=== PATIENT | male | born 1980 ===

== ENCOUNTER 2024-04-03 09:15 | Emergency (ER) | payer SELFPAY ==
[2024-04-03] VITALS (21 sets, daily range): BP systolic 49–136; BP diastolic 26–87; PULSE 67–89; RESP 12–22; TEMP 36.7–37.9; O2SAT 94–99
--- NOTE | ~2024-04-03 | CT_ITS ---
EXAMINATION: CT HEAD WITHOUT CONTRAST EXAMINATION: NONCONTRAST HEAD CT INDICATION INFORMATION: Altered mental status COMPARISON: None. TECHNIQUE: Noncontrast CT examinations of the head was performed. Coronal and sagittal images were created for each examination at the technologist workstation. This CT examination was performed using dose optimization techniques as appropriate, variously including the following: *Automated exposure control *Adjustment of mA and/or kV according to patient size (this includes techniques or standardized protocols for targeted exams where dose is matched to indication/reason for exam; i.e. extremities or head) *Use of iterative reconstruction technique DLP: 690 mGy-cm FINDINGS: Head: There is no evidence of acute intracranial hemorrhage or territorial infarction. No abnormal mass effect or midline shift is seen. Levin to white matter differentiation is well preserved. No extra-axial fluid collections are identified. No hydrocephalus. No significant volume loss. There is no abnormal attenuation within the brain parenchyma. No acute osseous or soft tissue abnormality. Mucosal thickening in the left frontal sinus and ethmoid air cells as well as the right sphenoid sinuses. Opacification of the left maxillary sinus. Mastoid air cells are clear. CT/CT head/brain wo IV con IMPRESSION: 1. No acute intracranial abnormality. 2. Sinus disease as described above. Electronically signed by: Chris Islas MD 04/03/2024 07:39 PM EDT
--- NOTE | ~2024-04-03 | XR_ITS ---
EXAMINATION: XR CHEST CLINICAL INFORMATION: Fever after overdose. Cough. COMPARISON: None available. TECHNIQUE: Frontal view of the chest was obtained. FINDINGS: Normal appearance of the cardiomediastinal structures. No effusions or pneumothoraces. Normal pattern of pulmonary vasculature. No focal pulmonary consolidation. No skeletal abnormalities noted. XR/XR chest 1V IMPRESSION: No acute cardiopulmonary abnormalities. Lungs clear. Electronically signed by: Rl Quiros MD 04/04/2024 03:20 AM EDT
--- NOTE | ~2024-04-03 | XR_ITS ---
EXAMINATION: XR CHEST CLINICAL INFORMATION: Fever, cough, aspiration. COMPARISON: Chest radiograph 04/04/2024. TECHNIQUE: 2 views of the chest were obtained. FINDINGS: Normal appearance of the cardiomediastinal silhouette. Minimally increased interstitial markings compared to prior without focal consolidation, pleural effusion or pneumothorax. No acute osseous findings. XR/XR chest 2V IMPRESSION: Minimally increased interstitial markings which could be seen with an infectious/inflammatory process of the small airways. No focal consolidation. Electronically signed by: Jeanine Orozco MD 04/04/2024 11:25 AM EDT
[2024-04-03] MEDS: OLANZapine 10 MG VIAL IM ×2 (09:46→10:45)
[2024-04-03] MEDS: Midazolam HCl/PF 2 MG/2 ML VIAL 5 MG IM ×2 (09:46→10:45)
[2024-04-03 09:47] LABS: Amphetamine Screen Urine Not Detected (Not Detect); Barbiturates, Urine Not Detected (Not Detect); Benzodiazepines Screen Urine Not Detected (Not Detect); Buprenorphine Scr Not Detected (Not Detect); Cannabinoid Screen Urine Not Detected (Not Detect); Cocaine Screen Urine POSITIVE (Not Detect); Fentanyl, urine POSITIVE (Not Detect); Methadone Screen, Urine Not Detected (Not Detect); Opiate Screen Urine POSITIVE (Not Detect); Oxycodone Screen Urine Not Detected (Not Detect); Phencyclidine Screen Urine Not Detected (Not Detect)
--- NOTE | 2024-04-03 10:20 | PC.NURSE ---
late charting due to patient care, patient arrives from street, witnessed overdose, per EMS patient recieved ?4mg of narcan from bystandards, was found to be agonally breathing by FD. FD gave an additional 2mg, of narcan, patient arrives awake but agitated on stretcher, flailing around,unable to be redirected,unable to tell us their name or birthday, tells this RN that they did a bag but not able to say of what, admits to daily drug use however. patient unable to provide any information, patient moved infront of nurses station for safety purposes, requiring frequent redirection, patient Bp unable to be obtained due to flailing in the bed and inability to sit still. MD at bedside to evaluate patient, patient medicated with IM medications per order. at this time patient remains intermittently rolling and flailing in the bed. ID confirmed by friends. patient on school bus monitor, saturating well and protecting airway at this time. BP still unable to be obtained, when cuff inflates patient becomes agitated. despite initial IM medications, patient remains flailing in bed, unable to be redirected. MD at bedside patient to be medicated again per order until no longer a risk to themself .
[2024-04-03 10:39] LABS: Appearance Urine Clear; Color Urine Yellow; Glucose Urine UA Negative (Negative); Leukocyte Esterase Urine Negative (Negative); Nitrite Urine Negative (Negative); UMIC TRIGGER UA YES; Urine Blood Negative (Negative); Urine Ketones Negative (Negative); Urine Protein 300 (3+) mg/dL (Neg-Trace)
[2024-04-03 10:43] LABS: Bacteria Urine None Seen (None Seen); Hyaline Casts Urine 0-2 /LPF (0-2); RBC Urine 0-2 /HPF (0-2); Squamous Epithelial Cell Urine 0-2 /HPF (0-2); WBC Urine 0-5 /HPF (0-5)
--- NOTE | 2024-04-03 10:45 | PC.NURSE ---
patient continues to try to stand up out of bed and push staff, patient difficult to redirect, MD made aware.
--- NOTE | 2024-04-03 10:54 | PC.NURSE ---
patient continues to roll around on stretcher, medicated again per MD. patient remains on cardiac cath technician however will not allow BP to be obtained. unable to obtain blood work at this time due to patient agitation. will try again when patient is better sedated
--- NOTE | 2024-04-03 11:09 | ED_ITS ---
HPI - General Adult General Chief complaint: Overdose Stated complaint: HEROIN OD,VOMITING,UNCOOPERATIVE PER EMS Time Seen by Provider: 04/03/24 09:36 History of Present Illness ED Provider: Mine KLINE narrative: The patient is a 43-year-old person who was apparently found on the street with a needle in their arm, quite unresponsive. Apparently the patient received a total of 6 mg of naloxone. The patient arrived very restless and confused. No other history available. Apparently some friends of the patient called the emergency room and said that the patient identifies as female and prefers to be called Frank. Related Data Allergies Allergy/AdvReac Type Severity Reaction Status Date / Time Unable to Assess Allergy Verified 04/03/24 09:19 Review of Systems 2 Review of Systems: Yes all other systems are reviewed and are negative and Unobtainable due to mental status PMFSH Social History Social History Unable to assess alcohol history related to: Unknown Use of substances other than those prescribed or required for medical reasons: Yes Substance Use Type: Crack/Cocaine, Heroin, IV Drugs and Opiates Last Used Substance: Just Prior to Admission Advance Directives: No Advance Directives Information Provided: No Physical Exam ED Vital Signs: Vital Signs - 24 hr 04/03/24 09:19 04/03/24 09:46 04/03/24 10:01 Temperature 98.1 F Pulse Rate 88 85 86 Respiratory Rate 19 20 19 Blood Pressure Pulse Oximetry 98 97 99 Oxygen Delivery Method Room Air Room Air 04/03/24 10:16 04/03/24 10:31 04/03/24 10:45 Temperature Pulse Rate 88 87 86 Respiratory Rate 20 22 H 20 Blood Pressure Pulse Oximetry 98 99 99 Oxygen Delivery Method Room Air Room Air Room Air 04/03/24 11:00 04/03/24 11:15 04/03/24 11:30 Temperature Pulse Rate 85 84 85 Respiratory Rate 18 20 16 Blood Pressure Pulse Oximetry 98 98 97 Oxygen Delivery Method Room Air Room Air Room Air 04/03/24 11:45 04/03/24 12:00 04/03/24 12:10 Temperature Pulse Rate 84 89 85 Respiratory Rate 16 15 16 Blood Pressure 49/26 L 90/40 L Pulse Oximetry 97 94 97 Oxygen Delivery Method Room Air Room Air Room Air 04/03/24 12:19 04/03/24 15:42 04/03/24 17:15 Temperature Pulse Rate 80 74 75 Respiratory Rate 14 20 19 Blood Pressure 107/60 119/71 120/73 Pulse Oximetry 96 95 95 Oxygen Delivery Method Room Air Room Air Room Air BMI result Body Mass Index 0.0 Const Other: The patient has a healthy and muscular physical appearance but they do not respond to verbal stimuli. They were intermittently restless with psychomotor agitation. They were not verbal. HENMT Other: Face is symmetrical. Airway is clear. Mucous membranes moist. Eyes Other: Pupils are small and equal, conjunctivae are clear Neck Other: The patient was moving the neck easily and with a full range of motion. No swelling. Resp Other: The patient was mildly tachypneic. Breath sounds were clear. Cardio Rate: regular rate Rhythm: regular rhythm Heart sounds: S1 normal heart sound present and S2 normal heart sound present GI Other: Abdomen was soft and seems nontender. Skin Other: The skin was mildly diaphoretic. Otherwise unremarkable. Neuro Other: The patient had a diminished level of caught this and restless psychomotor agitation. The patient was nonverbal. Eyes seemed symmetrical. Face was symmetrical. Tone in the extremities seemed symmetrical. Extrem Other: The patient has muscular extremities without soft tissue swelling or other abnormalities apparent. Medications Administered Discontinued Medications Generic Name Dose Route Start Last Admin Trade Name Freq PRN Reason Stop Dose Admin Droperidol 5 mg 04/03/24 11:22 04/03/24 11:25 Droperidol 5 Mg/2 Ml Vial IM 04/03/24 11:23 5 mg ONCE ONE Administration Sodium Chloride 1,000 mls @ 999 mls/hr 04/03/24 12:45 04/03/24 16:22 Ns IV 04/03/24 13:45 Infused .Q1H1M CHANO Infusion Lorazepam 2 mg 04/03/24 11:09 04/03/24 11:15 Lorazepam 2 Mg/Ml Vial IM 04/03/24 11:10 2 mg STAT STA Administration Lorazepam 2 mg 04/03/24 12:15 04/03/24 12:21 Lorazepam 2 Mg/Ml Vial IVPUSH 04/03/24 12:16 2 mg ONCE ONE Administration Midazolam HCl 5 mg 04/03/24 09:37 04/03/24 09:46 Midazolam Hcl/Pf 2 Mg/2 Ml Vial IM 04/03/24 09:38 5 mg ONCE ONE Administration Midazolam HCl 5 mg 04/03/24 10:29 04/03/24 10:45 Midazolam Hcl/Pf 2 Mg/2 Ml Vial IM 04/03/24 10:30 5 mg ONCE ONE Administration Midazolam HCl 10 mg 04/03/24 11:28 04/03/24 11:35 Midazolam Hcl/Pf 2 Mg/2 Ml Vial IM 04/03/24 11:29 10 mg ONCE ONE Administration Olanzapine 10 mg 04/03/24 09:37 04/03/24 09:46 Olanzapine 10 Mg Vial IM 04/03/24 09:38 10 mg ONCE ONE Administration Olanzapine 10 mg 04/03/24 10:29 04/03/24 10:45 Olanzapine 10 Mg Vial IM 04/03/24 10:30 10 mg ONCE ONE Administration Medical Decision Making Medical Decision Making [facility] Narrative: The patient is a 43-year-old who was brought to the hospital after apparently being found unresponsive with a needle in the arm. The patient was unresponsive and was given the naloxone. The patient became agitated but not coherent after receiving the naloxone. In the emergency room the patient was persistently agitated and incoherent and therefore required chemical sedation. The patient was given multiple rounds of chemical sedatives including olanzapine, midazolam, droperidol, and lorazepam. Ultimately the patient became calmer and did not require physical restraints. We were able to do labs that show mild elevation of CPK but no other significant derangements. Urine tox screen was positive for opioids, fentanyl, and cocaine. ETOH is negative, salicylates negative, acetaminophen negative. Given the degree of agitation and incoherence and sedation I have also obtained a head CT. The results of the head CT are not yet available. Patient will require ongoing monitoring until he has recovered from his sedation. My expectation is that he will gradually recover from the sedation and ultimately be discharged. I will be signing the patient out to the oncoming physician at change of shift Lab Data 04/03/24 14:17 04/03/24 14:17 Labs: Lab Results 04/03/24 04/03/24 04/03/24 Range/Units 09:26 14:17 14:23 WBC 6.3 (4.8-10.8) X10*3/uL RBC 4.08 L (4.60-5.80) X10*6/uL Hgb 11.8 L (14.0-18.0) g/dl Hct 35.6 L (42.0-52.0) % MCV 87.3 (80.0-98.0) fL MCH 28.9 (27.0-33.0) pg MCHC 33.1 (31.0-36.0) g/dl RDW 11.6 (11.0-16.0) % Plt Count 279 (160-400) X10*3/uL MPV 9.4 (9.4-12.4) fL Immature Gran % (Auto) 0.5 H (0.0-0.4) % Neut % (Auto) 81.3 H (45-73) % Lymph % (Auto) 13.8 L (20-40) % [place] % (Auto) 4.1 (2-11) % Eos % (Auto) 0.0 (0-4) % Baso % (Auto) 0.3 (0-2) % Lymph # (Auto) 0.9 L (1.2-4.9) X10*3/uL [place] # (Auto) 0.3 (0.1-1.2) X10*3/uL Eos # (Auto) 0.0 (0.0-0.4) X10*3/uL Baso # (Auto) 0.0 (0.0-0.2) X10*3/uL Abs Immat Gran (auto) 0.03 (0.00-0.03) X10*3/uL Absolute Neuts (auto) 5.1 (2.0-8.3) x10*3/uL Absolute Nucleated RBC 0.000 (0.0-0.012) X10*3/uL Nucleated RBC % (auto) 0.0 (0.0-0.2) /100WBC VBG pH 7.49 H (7.32-7.43) VBG pCO2 29 mmHg VBG pO2 167 mmHg VBG HCO3 23 (22-26) mmol/L VBG O2 Saturation 100.0 % VBG Base Excess 0.9 mmol/L Sodium 139 (135-145) mmol/L Potassium 4.1 (3.3-5.1) mmol/L Chloride 110 H (96-108) mmol/L Carbon Dioxide 23 (22-29) mmol/L Anion Gap 10 L (12-20) BUN 17 H (9-16) mg/dL Creatinine 1.15 (0.5-1.4) mg/dL Estim Creat Clear Calc TNP Estimated GFR > 60 Random Glucose 126 H (60-115) mg/dL Calcium 9.1 (8.4-10.2) mg/dL Total Bilirubin 0.5 (0.0-1.0) mg/dL Direct Bilirubin 0.2 (0.0-0.5) mg/dL AST 38 H (5-37) U/L ALT 17 (0-40) U/L Alkaline Phosphatase 68 (39-117) U/L Total Creatine Kinase 1038 H (38-174) U/L Total Protein 8.2 H (6.5-8.0) g/dL Albumin 3.4 L (3.5-5.0) g/dL Urine Color Yellow Urine Appearance Clear Urine pH 6.0 (5.0-9.0) Ur Specific [place] 1.020 (1.005-1.025) Urine Protein 300 (3+) H (Neg-Trace) mg/dL Urine Glucose (UA) Negative (Negative) mg/dL Urine Ketones Negative (Negative) mg/dL Urine Blood Negative (Negative) Urine Nitrite Negative (Negative) Ur Leukocyte Esterase Negative (Negative) Urine RBC 0-2 (0-2) /HPF Urine WBC 0-5 (0-5) /HPF Ur Squamous Epith Cells 0-2 (0-2) /HPF Urine Bacteria None Seen (None Seen) Hyaline Casts 0-2 (0-2) /LPF Salicylates (15-30) mg/dL Urine Opiates Screen POSITIVE H (Not Detect) Ur Buprenorphine Scrn Not Detected (Not Detect) ng/mL Ur Oxycodone Screen Not Detected (Not Detect) ng/mL Urine Methadone Screen Not Detected (Not Detect) ng/mL Urine Fentanyl Screen POSITIVE H (Not Detect) Acetaminophen (<30) mcg/mL Ur Barbiturates Screen Not Detected (Not Detect) Ur Phencyclidine Scrn Not Detected (Not Detect) Ur Amphetamines Screen Not Detected (Not Detect) U Benzodiazepines Scrn Not Detected (Not Detect) Urine Cocaine Screen POSITIVE H (Not Detect) U Marijuana (THC) Screen Not Detected (Not Detect) Ethyl Alcohol < 10 mg/dL 04/03/24 Range/Units 16:54 WBC (4.8-10.8) X10*3/uL RBC (4.60-5.80) X10*6/uL Hgb (14.0-18.0) g/dl Hct (42.0-52.0) % MCV (80.0-98.0) fL MCH (27.0-33.0) pg MCHC (31.0-36.0) g/dl RDW (11.0-16.0) % Plt Count (160-400) X10*3/uL MPV (9.4-12.4) fL Immature Gran % (Auto) (0.0-0.4) % Neut % (Auto) (45-73) % Lymph % (Auto) (20-40) % [place] % (Auto) (2-11) % Eos % (Auto) (0-4) % Baso % (Auto) (0-2) % Lymph # (Auto) (1.2-4.9) X10*3/uL [place] # (Auto) (0.1-1.2) X10*3/uL Eos # (Auto) (0.0-0.4) X10*3/uL Baso # (Auto) (0.0-0.2) X10*3/uL Abs Immat Gran (auto) (0.00-0.03) X10*3/uL Absolute Neuts (auto) (2.0-8.3) x10*3/uL Absolute Nucleated RBC (0.0-0.012) X10*3/uL Nucleated RBC % (auto) (0.0-0.2) /100WBC VBG pH (7.32-7.43) VBG pCO2 mmHg VBG pO2 mmHg VBG HCO3 (22-26) mmol/L VBG O2 Saturation % VBG Base Excess mmol/L Sodium (135-145) mmol/L Potassium (3.3-5.1) mmol/L Chloride (96-108) mmol/L Carbon Dioxide (22-29) mmol/L Anion Gap (12-20) BUN (9-16) mg/dL Creatinine (0.5-1.4) mg/dL Estim Creat Clear Calc Estimated GFR Random Glucose (60-115) mg/dL Calcium (8.4-10.2) mg/dL Total Bilirubin (0.0-1.0) mg/dL Direct Bilirubin (0.0-0.5) mg/dL AST (5-37) U/L ALT (0-40) U/L Alkaline Phosphatase (39-117) U/L Total Creatine Kinase 1225 H (38-174) U/L Total Protein (6.5-8.0) g/dL Albumin (3.5-5.0) g/dL Urine Color Urine Appearance Urine pH (5.0-9.0) Ur Specific [place] (1.005-1.025) Urine Protein (Neg-Trace) mg/dL Urine Glucose (UA) (Negative) mg/dL Urine Ketones (Negative) mg/dL Urine Blood (Negative) Urine Nitrite (Negative) Ur Leukocyte Esterase (Negative) Urine RBC (0-2) /HPF Urine WBC (0-5) /HPF Ur Squamous Epith Cells (0-2) /HPF Urine Bacteria (None Seen) Hyaline Casts (0-2) /LPF Salicylates < 5.0 L (15-30) mg/dL Urine Opiates Screen (Not Detect) Ur Buprenorphine Scrn (Not Detect) ng/mL Ur Oxycodone Screen (Not Detect) ng/mL Urine Methadone Screen (Not Detect) ng/mL Urine Fentanyl Screen (Not Detect) Acetaminophen < 3 (<30) mcg/mL Ur Barbiturates Screen (Not Detect) Ur Phencyclidine Scrn (Not Detect) Ur Amphetamines Screen (Not Detect) U Benzodiazepines Scrn (Not Detect) Urine Cocaine Screen (Not Detect) U Marijuana (THC) Screen (Not Detect) Ethyl Alcohol mg/dL Discharge Plan Discharge Clinical Impression: Altered mental status, Substance abuse Patient Disposition: Still a Patient Print Language: Unknown
--- NOTE | 2024-04-03 11:10 | PC.NURSE ---
patient unable to be redirected, will lay still for brief moments but then tries to jump over bed rails, multiple staff members present to attempt to redirect patient, patient to be medicated per MD.
[2024-04-03] MEDS: LORazepam 2 MG/ML VIAL IM (11:15)
[2024-04-03] MEDS: droPERidol 5 MG/2 ML VIAL IM (11:25)
--- NOTE | 2024-04-03 11:25 | PC.NURSE ---
after medication administration patient became more agitated, attempting to get out of bed, pulling at equipment, MD order to medicate patient again
--- NOTE | 2024-04-03 11:25 | PC.NURSE ---
patient attempting to get out of bed and swinging at staff. security called to bedside, patient to be medicated again and moved to room 21
[2024-04-03] MEDS: Midazolam HCl/PF 2 MG/2 ML VIAL 10 MG IM (11:35)
--- NOTE | 2024-04-03 12:00 | PC.NURSE ---
into room to assess patient, patient noted to be snoring on stretcher, not thrashing at this time, BP taken and noted to be 49/26, MD made aware, PIV then attempted to be placed on pt by this RN, upon sticking patient, patient started becoming combative again, MD aware. this RN able to gain IV Access, IV fluids started per Verbal order, unable to obtain blood work at this time due to increasing agitation, OK to hold on labs per MD. patient to be medicated again
[2024-04-03] MEDS: LORazepam 2 MG/ML VIAL IVPUSH (12:16)
[2024-04-03] MEDS: 0.9 % Sodium Chloride 1,000 ML 999 ML IV (12:35)
--- NOTE | 2024-04-03 12:55 | MHC.EDTECH ---
Per provider, hold off on attempt to redraw labs.
--- NOTE | 2024-04-03 13:10 | PC.NURSE ---
patient resting comfortably on stretcher at this time, patient continues to protect airway, maintaining O2, vital signs stable at this time. 1:1 sitter remains at bedside
[2024-04-03 14:25] LABS: MANUAL DIFF FLAG NO
[2024-04-03 14:28] LABS: Basophils Percent Auto 0.3 % (0-2); Hematocrit 35.6 % (42.0-52.0); Hemoglobin 11.8 g/dl (14.0-18.0); Imm Gran Abs Auto 0.03 X10*3/uL (0.00-0.03); Imm Gran Pct Auto 0.5 % (0.0-0.4); Lymphocytes Absolute Auto 0.9 X10*3/uL (1.2-4.9); Lymphocytes Percent Auto 13.8 % (20-40); Mean Corpuscular HGB Conc 33.1 g/dl (31.0-36.0); Mean Corpuscular Hemoglobin 28.9 pg (27.0-33.0); Mean Corpuscular Volume 87.3 fL (80.0-98.0); Mean Platelet Volume 9.4 fL (9.4-12.4); Monocytes Absolute Auto 0.3 X10*3/uL (0.1-1.2); Monocytes Percent Auto 4.1 % (2-11); Neutrophils Absolute Auto 5.1 x10*3/uL (2.0-8.3); Neutrophils Percent Auto 81.3 % (45-73); Platelet Count 279 X10*3/uL (160-400); Red Blood Count 4.08 X10*6/uL (4.60-5.80); Red Cell Distribution Width 11.6 % (11.0-16.0); White Blood Count 6.3 X10*3/uL (4.8-10.8)
[2024-04-03 14:29] LABS: VBG Base Excess 0.9 mmol/L; VBG HCO3 23 mmol/L (22-26); VBG pCO2 29 mmHg; VBG pH 7.49 (7.32-7.43); VBG pO2 167 mmHg
[2024-04-03 14:38] LABS: Venous Blood Gas Refer to POC result
[2024-04-03 14:51] LABS: Alanine Aminotransferase 17 U/L (0-40); Albumin Level 3.4 g/dL (3.5-5.0); Alkaline Phosphatase 68 U/L (39-117); Anion Gap 10 (12-20); Aspartate Amino Transferase 38 U/L (5-37); Bilirubin Direct 0.2 mg/dL (0.0-0.5); Bilirubin Total 0.5 mg/dL (0.0-1.0); Blood Urea Nitrogen 17 mg/dL (9-16); Calcium 9.1 mg/dL (8.4-10.2); Carbon Dioxide 23 mmol/L (22-29); Chloride 110 mmol/L (96-108); Estimated Glomerular Filt Rate > 60; Glucose Random 126 mg/dL (60-115); Potassium 4.1 mmol/L (3.3-5.1); Sodium 139 mmol/L (135-145); Total Protein 8.2 g/dL (6.5-8.0)
[2024-04-03 14:57] LABS: Ethanol < 10 mg/dL
--- NOTE | 2024-04-03 16:00 | PC.NURSE ---
attempted to bring patient to CT scan, per bone density technician patient began thrashing again on CT table, image unable to be obtained, MD made aware. will attempt when patient is better sedated
[2024-04-03 17:23] LABS: Acetaminophen LAB < 3 mcg/mL (<30); Salicylate < 5.0 mg/dL (15-30)
--- NOTE | 2024-04-03 18:57 | MHC.RECOVSUP ---
? Reason for consult Recovery Support o Current location: ED21 o Identified substance use concern: Heroin - Overdose - Support ? Intervention: <del>o</del> <del>ATS</del> <del>bed</del> <del>search</del> <del>started/completed/in</del> <del>process</del> <del>o</del> <del>MAT</del> <del>started</del> <del>or</del> <del>to</del> <del>be</del> <del>started</del> <del>o</del> <del>Community</del> <del>resources</del> <del>provided</del> <del>o</del> <del>Harm</del> <del>reduction</del> <del>discussion</del> <del>?</del> <del>Plan:</del> <del>o</del> <del>Referral</del> <del>to</del> <del>[facility]</del> <del>o</del> <del>Bed</del> <del>search</del> <del>in</del> <del>progress</del> <del>to</del> <del>o</del> <del>Follow</del> <del>up</del> <del>tomorrow</del> <del>o</del> <del>Patient</del> <del>awaiting</del> <del>crisis</del> <del>evaluation</del> <del>o</del> <del>Patient</del> <del>to</del> <del>follow</del> <del>up</del> <del>with</del> <del>[facility]</del> <del>after</del> <del>discharge</del> ? Additional information: Attempt to interview but Patient was not alert.
--- NOTE | 2024-04-03 19:27 | PC.NURSE ---
pt currently resting comfortably in stretcher with eyes closed resp even and unlabored. 1:1 sitter/VMT camera unavailable at this time auditor in charge and dimension stone quarry supervisor aware.
--- NOTE | 2024-04-03 23:52 | MHC.EDTECH ---
This pct assumed care of Patient ,vitals taken ,Pt got up and urinated in the bed and on the floor ,care given and bedding change ,warm blanket given ,All safety measure in Place ..
[2024-04-04] VITALS (7 sets, daily range): BP systolic 123–155; BP diastolic 82–92; PULSE 64–80; RESP 16–22; TEMP 37.3–38.5; O2SAT 95–99
--- NOTE | 2024-04-04 01:52 | PC.NURSE ---
pt remains sleeping in stretcher however repositioning self, previously requested to use urinal. 1:1 sitter at bedside resp even and unlabored 98% on RA.
--- NOTE | 2024-04-04 03:15 | PC.NURSE ---
pt verbalized understanding they have a fever. labs obtained. pt verbalized they will take tylenol, when handed over pt refusing. multiple attempts and pt flailing arms refusing to take. aware.
[2024-04-04 03:23] LABS: Anion Gap 14 (12-20); Blood Urea Nitrogen 17 mg/dL (9-16); Calcium 9.4 mg/dL (8.4-10.2); Carbon Dioxide 22 mmol/L (22-29); Chloride 107 mmol/L (96-108); Estimated Glomerular Filt Rate > 60; Glucose Random 98 mg/dL (60-115); Potassium 4.2 mmol/L (3.3-5.1); Sodium 139 mmol/L (135-145)
[2024-04-04 03:36] LABS: Influenza A PCR NEGATIVE (Negative); Influenza B PCR NEGATIVE (Negative); Resp Syncy Virus RNA Qual PCR NEGATIVE (Negative); SARS COV2 PCR INHOUSE NEGATIVE (Negative)
[2024-04-04] MEDS: Acetaminophen 325 MG TABLET 975 MG PO (04:12)
--- NOTE | 2024-04-04 04:12 | PC.NURSE ---
pt awake and used urinal. pt offered tylenol and agreed, medicated per oct. pt then had a vomiting episode. Dr. Mackenzie aware.
[2024-04-04] MEDS: ondansetron HCL 4 MG/2 ML VIAL IVPUSH (07:48)
[2024-04-04] MEDS: Lactated Ringers 1,000 ML 999 ML IV ×2 (07:48→11:45)
--- NOTE | 2024-04-04 07:50 | PC.NURSE ---
this nurse took over care at 7am, pt sleeping at that time, pt woke per bedside sitter and began vomiting on the floor, this nurse noted copious amounts of yellow vomit on the floor, pt refusing to answer questions of pain or si/hi, pt went right back to sleep, provider notified, ivf and zofran given per order, copy director intact sinus kristin on monitor, pt has been febrile tylenol was given prior to this nurses arrival repeat temp was still mildly elevated, rr equal/non labored, lungs clear, call north within reach, camera/fall precautions intact, will continue with plan of care
--- NOTE | 2024-04-04 08:59 | PC.NURSE ---
iv site was lost, ivf had to be stopped/wasted, provider came in to evaluate patient, pt has since started vomiting again, will notify provider.
[2024-04-04 09:33] LABS: MANUAL DIFF FLAG NO
[2024-04-04 09:34] LABS: Basophils Absolute Auto 0.1 X10*3/uL (0.0-0.2); Basophils Percent Auto 0.5 % (0-2); Hematocrit 41.1 % (42.0-52.0); Hemoglobin 13.6 g/dl (14.0-18.0); Imm Gran Abs Auto 0.06 X10*3/uL (0.00-0.03); Imm Gran Pct Auto 0.6 % (0.0-0.4); Lymphocytes Absolute Auto 1.1 X10*3/uL (1.2-4.9); Lymphocytes Percent Auto 10.2 % (20-40); Mean Corpuscular HGB Conc 33.1 g/dl (31.0-36.0); Mean Corpuscular Hemoglobin 28.9 pg (27.0-33.0); Mean Corpuscular Volume 87.3 fL (80.0-98.0); Mean Platelet Volume 9.4 fL (9.4-12.4); Monocytes Absolute Auto 0.3 X10*3/uL (0.1-1.2); Monocytes Percent Auto 3.1 % (2-11); Neutrophils Absolute Auto 9.3 x10*3/uL (2.0-8.3); Neutrophils Percent Auto 85.6 % (45-73); Platelet Count 338 X10*3/uL (160-400); Red Blood Count 4.71 X10*6/uL (4.60-5.80); Red Cell Distribution Width 11.6 % (11.0-16.0); White Blood Count 10.8 X10*3/uL (4.8-10.8)
[2024-04-04 09:47] LABS: Lactic Acid 1.1 mmol/L (0.5-2.0)
[2024-04-04 09:54] LABS: Alanine Aminotransferase 19 U/L (0-40); Albumin Level 3.8 g/dL (3.5-5.0); Alkaline Phosphatase 75 U/L (39-117); Anion Gap 13 (12-20); Aspartate Amino Transferase 59 U/L (5-37); Bilirubin Direct 0.4 mg/dL (0.0-0.5); Bilirubin Total 0.9 mg/dL (0.0-1.0); Blood Urea Nitrogen 19 mg/dL (9-16); Calcium 9.8 mg/dL (8.4-10.2); Carbon Dioxide 25 mmol/L (22-29); Chloride 105 mmol/L (96-108); Estimated Glomerular Filt Rate 55; Glucose Random 116 mg/dL (60-115); Potassium 4.2 mmol/L (3.3-5.1); Sodium 139 mmol/L (135-145); Total Protein 9.5 g/dL (6.5-8.0)
--- NOTE | 2024-04-04 11:07 | PC.NURSE ---
pt to xray
--- NOTE | 2024-04-04 11:08 | PC.NURSE ---
recovery services at bedside to see patient, will wait until pt returns from xray
--- NOTE | 2024-04-04 11:13 | PC.NURSE ---
pt refusing to speak with Ebonie Ferreira- recovery, if pt wishes to speak with them we can tiger text ebonie and she will return to speak with the patient
--- NOTE | 2024-04-04 11:14 | PC.NURSE ---
pts had an us iv put in with labs redrawn however pt refusal to keep arm straight which eventually infiltrated the IV. provider was aware of this, new IV access was obtained in patients foot with provider jin.
== END 2024-04-04 14:30 | disposition home or self-care (01) ==
PROVIDERS: Emergency Medicine; Emergency Provider Emergency Medicine
DX: R41.82 Altered mental status, unspecified (principal); F19.10 Other psychoactive substance abuse, uncomplicated; R50.9 Fever, unspecified; R45.1 Restlessness and agitation; T40.1X1A Poisoning by heroin, accidental (unintentional), initial encounter; Y92.9 Unspecified place or not applicable; Z03.818 Encounter for observation for suspected exposure to other biological agents ruled out
CPT/HCPCS: 0241U; 36415; 70450; 71045; 71046; 80048; 80076; 80143; 80179; 80307; 81001; 82550; 82803; 83605; 85025; 86140; 87040; 96361; 96372; 96374; 96375; 99285; J1790; J2060; J2250; J2359; J2405; J7120